=== PATIENT | female | born 1990 | race American Indian/Alaskan Native ===

== ENCOUNTER 2017-09-02 09:44 | Emergency (ER) | payer SELFPAY ==
[2017-09-02 11:13] LABS: HCG Qualitative,Urine Negative (Negative)
[2017-09-02] MEDS ORDERED: DECADRON IM ONE (11:19)
[2017-09-02] MEDS ORDERED: TYLENOL PO ONE (11:19)
--- NOTE | 2017-09-02 11:19 | Emergency Department Report ---
ED ENT HPI - General Chief complaint: Sore Throat Stated complaint: SORE THROAT/VOICE GONE/CP Time Seen by Provider: 09/02/17 10:24 Source: patient Mode of arrival: Ambulatory Limitations: No Limitations - History of Present Illness Initial comments: 27-year-old female past medical history none presents with complaint of sore throat course voice and nonproductive cough for 4-5 days. States she feels slightly nauseous and has chest discomfort after coughing. Denies any pleuritic chest pain. Patient is speaking in full sentences awake alert and oriented 3 not in acute distress. No audible wheezing or stridor. Patient has no trismus and no drooling. Denies any pleuritic chest pain. MD complaint: sore throat Onset/Timin -: days(s) Location: throat Severity: moderate Severity scale (0 -10): 5 Quality: aching Consistency: constant Improves with: none Worsens with: none Associated Symptoms: sore throat - Related Data Previous Rx's Medication Instructions Recorded Last Taken Type Cyclobenzaprine [Flexeril 10mg] 10 mg PO Q8H PRN #21 tablet 03/24/14 Unknown Rx Ibuprofen [Motrin 600 MG tab] 600 mg PO Q8H PRN #30 tablet 03/24/14 Unknown Rx Dextromethorphan/Benzocaine 1 each PO Q4H PRN #1 box 09/02/17 Unknown Rx [Cepacol Sorethroat-Cough Noel] Famotidine [Pepcid] 20 mg PO BID PRN #30 tablet 09/02/17 Unknown Rx Ibuprofen [Motrin] 600 mg PO Q8H PRN #20 tablet 09/02/17 Unknown Rx Loratadine [Claritin] 10 mg PO DAILY PRN #1 box 09/02/17 Unknown Rx Phenylephrine/Dm/Acetaminop/GG 10 ml PO Q6H PRN #1 liquid 09/02/17 Unknown Rx [Mucinex Poyc-Pqx-Xzejircurw Lq] Allergies Allergy/AdvReac Type Severity Reaction Status Date / Time No Known Allergies Allergy Unverified 03/24/14 10:11 ED Dental HPI - General Chief complaint: Sore Throat Stated complaint: SORE THROAT/VOICE GONE/CP Time Seen by Provider: 09/02/17 10:24 Source: patient Mode of arrival: Ambulatory Limitations: No Limitations - Related Data Previous Rx's Medication Instructions Recorded Last Taken Type Cyclobenzaprine [Flexeril 10mg] 10 mg PO Q8H PRN #21 tablet 03/24/14 Unknown Rx Ibuprofen [Motrin 600 MG tab] 600 mg PO Q8H PRN #30 tablet 03/24/14 Unknown Rx Dextromethorphan/Benzocaine 1 each PO Q4H PRN #1 box 09/02/17 Unknown Rx [Cepacol Sorethroat-Cough Noel] Famotidine [Pepcid] 20 mg PO BID PRN #30 tablet 09/02/17 Unknown Rx Ibuprofen [Motrin] 600 mg PO Q8H PRN #20 tablet 09/02/17 Unknown Rx Loratadine [Claritin] 10 mg PO DAILY PRN #1 box 09/02/17 Unknown Rx Phenylephrine/Dm/Acetaminop/GG 10 ml PO Q6H PRN #1 liquid 09/02/17 Unknown Rx [Mucinex Gtoc-Qgw-Vcijnnpfwf Lq] Allergies Allergy/AdvReac Type Severity Reaction Status Date / Time No Known Allergies Allergy Unverified 03/24/14 10:11 ED Review of Systems ROS: Stated complaint: SORE THROAT/VOICE GONE/CP Other details as noted in HPI Constitutional: denies: chills, fever Eyes: denies: eye pain, eye discharge, vision change ENT: throat pain. denies: ear pain Respiratory: denies: cough, shortness of breath, wheezing Cardiovascular: denies: chest pain, palpitations Endocrine: no symptoms reported Gastrointestinal: denies: abdominal pain, nausea, diarrhea Genitourinary: denies: urgency, dysuria, discharge Musculoskeletal: denies: back pain, joint swelling, arthralgia Skin: denies: rash, lesions Neurological: denies: headache, weakness, paresthesias Psychiatric: denies: anxiety, depression Hematological/Lymphatic: denies: easy bleeding, easy bruising ED Past Medical Hx - Past Medical History Previous Medical History?: Yes Additional medical history: strept throat, Vaginal delivery 06-15-2015 - Surgical History Past Surgical History?: No - Social History Smoking Status: Never Smoker Substance Use Type: None - Medications Home Medications: Home Medications Medication Instructions Recorded Confirmed Last Taken Type Cyclobenzaprine [Flexeril 10mg] 10 mg PO Q8H PRN #21 tablet 03/24/14 Unknown Rx Ibuprofen [Motrin 600 MG tab] 600 mg PO Q8H PRN #30 tablet 03/24/14 Unknown Rx Dextromethorphan/Benzocaine 1 each PO Q4H PRN #1 box 09/02/17 Unknown Rx [Cepacol Sorethroat-Cough Noel] Famotidine [Pepcid] 20 mg PO BID PRN #30 tablet 09/02/17 Unknown Rx Ibuprofen [Motrin] 600 mg PO Q8H PRN #20 tablet 09/02/17 Unknown Rx Loratadine [Claritin] 10 mg PO DAILY PRN #1 box 09/02/17 Unknown Rx Phenylephrine/Dm/Acetaminop/GG 10 ml PO Q6H PRN #1 liquid 09/02/17 Unknown Rx [Mucinex Nkvp-Hry-Kbceyvkcyo Lq] ED Physical Exam - General Limitations: No Limitations General appearance: alert, in no apparent distress - Head Head exam: Present: atraumatic, normocephalic - Eye Eye exam: Present: normal appearance, PERRL, EOMI - ENT ENT exam: Present: mucous membranes moist - Neck Neck exam: Present: normal inspection - Respiratory Respiratory exam: Present: normal lung sounds bilaterally. Absent: respiratory distress - Cardiovascular Cardiovascular Exam: Present: regular rate, normal rhythm. Absent: systolic murmur, diastolic murmur, rubs, gallop - GI/Abdominal GI/Abdominal exam: Present: soft, normal bowel sounds - Extremities Exam Extremities exam: Present: normal inspection - Back Exam Back exam: Present: normal inspection - Neurological Exam Neurological exam: Present: alert, oriented X3 - Psychiatric Psychiatric exam: Present: normal affect, normal mood - Skin Skin exam: Present: warm, dry, intact, normal color. Absent: rash ED Course Vital Signs 09/02/17 09:59 Temperature 98.9 F Pulse Rate 100 H Respiratory 16 Rate Blood Pressure 118/78 O2 Sat by Pulse 98 Oximetry ED Medical Decision Making - Medical Decision Making A/P: Laryngitis versus URI, possible seasonal allergies 1-throat lozenges, Motrin when necessary, Mucinex, Zofran when necessary, inhaler when necessary 2-patient has negative rapid strep test, culture sent. CENTOR criteria 1 points. 1% - 10% likelihood of strep=> No further testing nor antibiotics. 3- [email or web address] source=search_result&[email or web address]&usage_type=default&display_rank=1# [id number] 4-chest x-ray unremarkable, vital signs stable before discharge, patient is tolerating by mouth fluid and food without difficulty Critical care attestation.: If time is entered above; I have spent that time in minutes in the direct care of this critically ill patient, excluding procedure time. ED Disposition Clinical Impression: Laryngitis, Sore throat Upper respiratory infection Qualifiers: URI type: unspecified viral URI Qualified Code(s): J06.9 - Acute upper respiratory infection, unspecified Disposition: TO HOME OR SELFCARE Is pt being admited?: No Does the pt Need Aspirin: No Condition: Stable Instructions: Laryngitis (ED), Upper Respiratory Infection (ED), Viral Syndrome (ED), Cold Symptoms (ED) Prescriptions: Dextromethorphan/Benzocaine [Cepacol Sorethroat-Cough Noel] 1 each PO Q4H PRN #1 box PRN Reason: Sore Throat Famotidine [Pepcid] 20 mg PO BID PRN #30 tablet PRN Reason: Sore Throat Ibuprofen [Motrin] 600 mg PO Q8H PRN #20 tablet PRN Reason: Pain Loratadine [Claritin] 10 mg PO DAILY PRN #1 box PRN Reason: Congestion Phenylephrine/Dm/Acetaminop/GG [Mucinex Vhwp-Axa-Fyonknzgfo Lq] 10 ml PO Q6H PRN #1 liquid PRN Reason: Cough Referrals: [facility] [Outside] - 3-5 Days [facility] [Outside] - 3-5 Days Forms: Accompanied Note, Work/School Release Form(ED) Time of Disposition: 12:01
--- NOTE | 2017-09-02 11:41 | XRay Report ---
ROUTINE CHEST, TWO VIEWS: HISTORY: Cough. The trachea, heart, mediastinal contour, lung thompson and bony thorax are unremarkable. IMPRESSION: Unremarkable chest x-ray.
[2017-09-02 12:16] VITALS: BP 110/77
== END 2017-09-02 12:17 | disposition home or self-care (01) ==
LOC: ED 09:44
DX: J06.0 Acute laryngopharyngitis (principal); R11.0 Nausea
CPT/HCPCS: 71046; 81025; 87116; 87430; 96372; 99283; J1100

== ENCOUNTER 2017-09-19 09:53 | Emergency (ER) | payer OTHER, MEDICAID ==
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
[2017-09-19] MEDS ORDERED: TORADOL IM ONE (12:08)
[2017-09-19] MEDS ORDERED: TORADOL ONE (12:17)
[2017-09-19 12:56] VITALS: BP 109/75
== END 2017-09-19 12:54 | disposition home or self-care (01) ==
LOC: ED 09:53
DX: M79.1 Myalgia (principal)
CPT/HCPCS: 93005; 93010; 96372; 99283; J1885

== ENCOUNTER 2017-11-17 13:01 | Emergency (ER) | payer MEDICAID, OTHER ==
[2017-11-17 13:10] VITALS: BP 115/76
--- NOTE | 2017-11-17 14:27 | Emergency Department Report ---
[facility] Chief Complaint: Eye Problems Stated Complaint: PINK EYE Time Seen by Provider: 11/17/17 14:10 Duration: Today Side: Left Severity: mild Symptoms: Yes Eye Itching, Yes Eye Redness, Yes Eye Pain, Yes Mucous Drainage, Yes Contact Lens Use, No Purulent Drainage, No Blurred Vision, No Preceding URI , No H/O Allergic Rhinitis, No Trauma, No Fever, No Headache Other History: This is a 27-year-old -[place] female represents with redness, drainage and crusting of the left eye on waking this morning. Patient reports has been had pink eye last week and has currently been taken eyedrops. She deviated use his eyedrops twice today with no improvement of symptoms. She is a contact wearer and denies sensation of foreign object in eye. She is also requesting a prescription for tic bite 2 weeks ago. Patient reports she was seen at 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 She is requesting another medication that is cheaper that will cover tic exposure. Denies myalgia, fever, chest pain, wheezing, shortness of breath, and visual changes. ED Review of Systems ROS: Stated complaint: PINK EYE Other details as noted in HPI Constitutional: denies: chills, fever Eyes: eye pain (left eye), eye discharge (left eye). denies: vision change Respiratory: denies: cough, shortness of breath, wheezing Cardiovascular: denies: chest pain, palpitations Gastrointestinal: denies: abdominal pain, nausea, vomiting, diarrhea Neurological: denies: headache, weakness, paresthesias Psychiatric: denies: anxiety, depression ED Past Medical Hx - Past Medical History Additional medical history: strept throat, Vaginal delivery 06-15-2015 - Surgical History Past Surgical History?: No - Social History Smoking Status: Never Smoker Substance Use Type: None - Medications Home Medications: Home Medications Medication Instructions Recorded Confirmed Last Taken Type Cyclobenzaprine [Flexeril 10mg] 10 mg PO Q8H PRN #21 tablet 03/24/14 Unknown Rx Ibuprofen [Motrin 600 MG tab] 600 mg PO Q8H PRN #30 tablet 03/24/14 Unknown Rx Dextromethorphan/Benzocaine 1 each PO Q4H PRN #1 box 09/02/17 Unknown Rx [Cepacol Sorethroat-Cough Noel] Famotidine [Pepcid] 20 mg PO BID PRN #30 tablet 09/02/17 Unknown Rx Ibuprofen [Motrin] 600 mg PO Q8H PRN #20 tablet 09/02/17 Unknown Rx Loratadine [Claritin] 10 mg PO DAILY PRN #1 box 09/02/17 Unknown Rx Phenylephrine/Dm/Acetaminop/GG 10 ml PO Q6H PRN #1 liquid 09/02/17 Unknown Rx [Mucinex Upns-Pop-Phlljtpqri Lq] Acetaminophen/Codeine [Tylenol 1 tab PO Q6H PRN #10 tab 09/19/17 Unknown Rx /Codeine # 3 tab] Ciprofloxacin 0.3% (Nf) 2.5 ml OP Q4H 7 Days #1 bottle 11/17/17 Unknown Rx [Ciprofloxacin OPTH] Doxycycline Hyclate [Vibramycin] 100 mg PO BID #20 capsule 11/17/17 Unknown Rx [facility] Exam - Exam General: Vital signs noted. No distress. Alert and acting appropriately. Eye Exam: Left Injection, Left Mucous Discharge, Both EOMI, Neither Chemosis, Neither Abnormal Pupil, Neither Eye Foreign Body, Neither Lid Foreign Body, Neither Purulent Discharge, Neither Fluorescein Uptake, Neither Fluorescein Uptake (slit lamp), Neither Cell/Flare (slit lamp), Neither Corneal Edema, Neither Photophobia HEENT: No Nasal Congestion, No Pharyngeal Erythema Remainder of HEENT: Normal Lungs: Yes Clear Lung Sounds, Yes Good Air Exchange, No Wheezes, No Stridor, No Cough, No Nasal Flaring, No Retractions, No Use of Accessory Muscles ED Course Vital Signs 11/17/17 13:05 Temperature 98.5 F Pulse Rate 66 Respiratory 20 Rate Blood Pressure 115/76 O2 Sat by Pulse 100 Oximetry ED Medical Decision Making - Medical Decision Making This is a 27-year-old female presents with right pink eye with mucous discharge that started this morning. She is also requesting another prescription for a previous tick bite 2 weeks ago. She was seen at [facility] and given doxycycline but could not afford prescription. Patient is stable and was examined by me. Vitals normal. Physical assessment susceptible of conjunctivitis on the right. Start Cipro drops. Start doxycycline hyclate for tic bite prophylaxis. Discussed plan with patient and she agreed with plan. Discharged home in stable condition. Follow up with PCP in 24-72 hours. Critical care attestation.: If time is entered above; I have spent that time in minutes in the direct care of this critically ill patient, excluding procedure time. ED Disposition Clinical Impression: Conjunctivitis Qualifiers: Conjunctivitis type: acute Acute conjunctivitis type: bacterial Laterality: left Qualified Code(s): H10.32 - Unspecified acute conjunctivitis, left eye Tick bite of abdomen Qualifiers: Encounter type: initial encounter Qualified Code(s): S30.861A - Insect bite ( nonvenomous) of abdominal wall, initial encounter; W57.XXXA - Bitten or stung by nonvenomous insect and other nonvenomous arthropods, initial encounter Disposition: - TO HOME OR SELFCARE Is pt being admited?: No Does the pt Need Aspirin: No Condition: Stable Instructions: Conjunctivitis (ED), Tick Bite (ED) Additional Instructions: Pinkeye is very contagious so please wash hands frequently. Don't share any towels or bedding to prevent spread of infection. Follow up with primary care provider in 24-72 hours. Use cool compress to each eye to decrease swelling. Avoid rubbing or touching eyes, because rubbing eyes can cause worsening symptoms. Take medication as prescribed. Return to ER if swelling don't improve or difficulty breathing after 2 days of medication. Prescriptions: Ciprofloxacin 0.3% (Nf) [Ciprofloxacin OPTH] 2.5 ml OP Q4H 7 Days #1 bottle Doxycycline Hyclate [Vibramycin] 100 mg PO BID #20 capsule Referrals: [facility] [Outside] - 3-5 Days [facility] [Outside] - 3-5 Days [facility] [Outside] - 3-5 Days Time of Disposition: 14:36 Print Language: [id number]
== END 2017-11-17 14:49 | disposition home or self-care (01) ==
LOC: ED 13:01
DX: S30.861A Insect bite (nonvenomous) of abdominal wall, initial encounter (principal); H10.32 Unspecified acute conjunctivitis, left eye; W57.XXXA Bitten or stung by nonvenomous insect and other nonvenomous arthropods, initial encounter; Y93.89 Activity, other specified; Y92.89 Other specified places as the place of occurrence of the external cause; Y99.8 Other external cause status
CPT/HCPCS: 99282